=== PATIENT | female | born 1960 | race Caucasian/White ===

== ENCOUNTER 2017-08-04 20:28 | Emergency (ER) | payer BC ==
[~2017-08-04] VITALS: Ht 160 cm; Wt 90.7 kg
[~2017-08-04 20:28] MED LIST: DIVA500T53; FENO160T8 PO; INSU75SU2 SC; LEVE500T3 PO; MIRT15TA3 PO; RISP2TAB62 PO; SIMV-13 PO
[2017-08-04] MEDS ORDERED: GASTROGRAFIN 120 ML SOL ONE (21:48)
[2017-08-04 21:51] LABS: Basophils # (auto) 0.2 uL; Basophils % (auto) 0.9 % (0.0-2.0); Nucleated Red Blood Cells % 0.1 %
[2017-08-04 21:54] LABS: Eosinophils # (auto) 0.3 uL; Hematocrit 41.9 % (36.0-46.0); Hemoglobin 14.3 g/dL (12.2-16.2); Lymphocytes % (auto) 17.8 % (10.0-50.0); Mean Corpuscular Hemoglobin 29.1 pg (28.0-32.0); Mean Corpuscular Volume 85.5 fL (80.0-100.0); Monocytes # (auto) 1.1 uL; Monocytes % (auto) 6.5 % (0.0-12.0); Neutrophils # (auto) 12.2 uL; Neutrophils % (auto) 72.8 % (37.0-80.0); Platelet Count (auto) 476 10^3/uL (140-450); Red Cell Distribution Width 13.7 % (11.8-14.3); White Blood Cell 16.7 10^3/uL (4.4-10.8)
[2017-08-04 22:07] LABS: Albumin 3.1 g/dL (3.4-5.0); BUN/Creatinine Ratio 12.6; Bilirubin, Total 0.2 mg/dL (0.2-1.0); Calcium 8.8 mg/dL (8.5-10.1); Potassium 3.6 mmol/L (3.5-5.1); Total Protein 7.8 g/dL (6.4-8.2)
[2017-08-04 23:25] VITALS: BP 135/72
[2017-08-05 00:37] LABS: Urine Bacteria MOD /hpf (None Seen); Urine Blood 1+ /uL (Negative); Urine Mucus FEW (None Seen); Urine Specific Gravity 1.017 (1.001-1.035); Urine WBC 28 /hpf (0 - 5)
== END 2017-08-05 00:29 | disposition home or self-care (01) ==
LOC: ER 20:28 → EDBD 20:28 → EDUNIT# 20:28 → ER 08-05 00:22
DX: T17.228A Food in pharynx causing other injury, initial encounter (principal); E11.65 Type 2 diabetes mellitus with hyperglycemia; F20.9 Schizophrenia, unspecified; X58.XXXA Exposure to other specified factors, initial encounter; Y93.89 Activity, other specified; Y92.89 Other specified places as the place of occurrence of the external cause; Y99.8 Other external cause status
CPT/HCPCS: 36415; 70490; 71045; 74220; 80053; 81001; 85025; 99285; Q9963